=== PATIENT | male | born 1935 | race Caucasian/White ===

== ENCOUNTER 2022-03-21 01:45 | Emergency (ER) | payer OTHER, BC ==
[2022-03-21 02:20] VITALS: BP 142/87; PULSE 113; RESP 18; TEMP 99.3; BMI 32.1
== END 2022-03-21 02:24 | disposition home or self-care (01) ==
LOC: EDBD → FER 01:45
DX: R45.1 Restlessness and agitation (principal)
CPT/HCPCS: 99281-25